=== PATIENT | male | born 1945 | race Caucasian/White ===

== ENCOUNTER 2016-11-13 14:38 | Outpatient (CLI) | payer MEDICARE, OTHER | END 2016-11-13 14:39 | disposition home or self-care (01) | DX: Z85.46 Personal history of malignant neoplasm of prostate (principal) ==

== ENCOUNTER 2017-04-12 15:30 | Emergency (ER) | payer MEDICARE, OTHER ==
[2017-04-12] MEDS ORDERED: GLUCAGON 1 MG/ML VIAL IVP STA (15:38)
[2017-04-12] MEDS ORDERED: diazePAM INJ 5 MG/ML SYRINGE IVP STA (15:38)
--- NOTE | 2017-04-12 15:39 | ED Physician Documentation ---
PD HPI CHEST PAIN - Stated complaint Stated Complaint: OBJECT IN THROAT - History obtained from History obtained from: Patient - History of Present Illness Timing - onset: Other (71-year-old gentleman with known Schatzki's ring, has been dilated a few times in the past by Dr. Hernandez in [place]. It has been a couple of years. Today after eating a salad feels impacted food bolus low in the sternum and is unable to manage his secretions but his voice is normal.) Review of Systems Constitutional: reports: Reviewed and negative Cardiac: denies: Palpitations, Pedal edema, Calf pain Respiratory: denies: Dyspnea, Cough, Hemoptysis, Wheezing PD PAST MEDICAL HISTORY - Past Medical History Cardiovascular: None Respiratory: None Endocrine/Autoimmune: None GI: Colon polyps, Other : Other HEENT: None Psych: None Musculoskeletal: None Derm: None, Rosacea - Past Surgical History Past Surgical History: Yes General: Colonoscopy, EGD - Allergies Allergies/Adverse Reactions: Allergies Allergy/AdvReac Type Severity Reaction Status Date / Time Sulfa (Sulfonamide Allergy Unknown Verified 12/08/14 15:44 Antibiotics) - Social History Does the pt smoke?: No Smoking Status: Never smoker PD ED PE NORMAL - Vitals Vital signs reviewed: Yes - General General: Alert and oriented X 3, No acute distress - HEENT HEENT: Pharynx benign - Cardiac Cardiac: RRR, No murmur - Respiratory Respiratory: No respiratory distress, Clear bilaterally - Abdomen Abdomen: Non tender - Neuro Neuro: Alert and oriented X 3, Normal speech - Psych Psych: Normal mood, Normal affect Results - Vitals Vitals: Vital Signs - 24 hr 04/12/17 15:31 Temperature 36.6 C Heart Rate 67 Respiratory 17 Rate Blood Pressure 171/100 H O2 Saturation 96 Oxygen O2 Source Room air PD MEDICAL DECISION MAKING - ED course ED course: He presents with recurrent esophageal food impaction from Schatzki's ring. Medications as given in the past were ordered, however prior to the administration of these he cleared the food bolus on his own and was tolerating liquids without issue. Advise follow-up with GI for consideration for repeat esophageal dilatation. Departure - Departure Disposition: 01 Home, Self Care Clinical Impression: Esophageal foreign body Qualifiers: Encounter type: initial encounter Qualified Code(s): T18.108A - Unspecified foreign body in esophagus causing other injury, initial encounter Condition: Good Record reviewed to determine appropriate education?: Yes Instructions: ED Foreign Body Esophageal Rslv Comments: Follow-up with your manager security and safety for consideration for repeat dilatation of your Schatzki's ring. Your blood pressure was elevated today on check into the emergency department. This does not mean that you have hypertension, it is a common phenomenon to come to the emergency department and have elevated blood pressure. I recommend that she see her primary care physician within the week to have it rechecked when you are feeling better.
[2017-04-12 15:49] VITALS: BP 171/100
== END 2017-04-12 16:06 | disposition home or self-care (01) ==
LOC: ED 15:30
DX: T18.128A Food in esophagus causing other injury, initial encounter (principal); K22.2 Esophageal obstruction; R03.0 Elevated blood-pressure reading, without diagnosis of hypertension
CPT/HCPCS: 99282; 99283

== ENCOUNTER 2017-07-08 21:42 | Emergency (ER) | payer MEDICARE, OTHER ==
[2017-07-08] MEDS ORDERED: diazePAM INJ 5 MG/ML SYRINGE IVP STA ×2 (22:27→23:12)
[2017-07-08] MEDS ORDERED: diazePAM INJ 5 MG/ML SYRINGE ONE ×2 (22:33→23:24)
[2017-07-08] MEDS ORDERED: GLUCAGON 1 MG/ML VIAL IVP STA (23:12)
[2017-07-08] MEDS ORDERED: GLUCAGON 1 MG/ML VIAL ONE (23:24)
[2017-07-08] MEDS ORDERED: WATER FOR INJECTION,STERILE 10 ML ONE (23:26)
[2017-07-09 00:26] VITALS: BP 183/107
--- NOTE | 2017-07-09 00:44 | ED Physician Documentation ---
PD HPI HEENT FB - Chief complaint Chief Complaint: Heent - History obtained from History obtained from: Patient, Family - History of Present Illness Timing - onset: Today Associated symptoms: Unable to swallow Similar symptoms before: Work up / diagnostics, Treatment Recently seen: Not recently seen - Additional information Additional information: Patient is a 71 year old male with a history of esophageal strictures and mulitple fb who is presenting to the emergency department for retained esophageal fb. patient states that he ate some salmon tonight and it feels like it is stuck. Patient is unable to swallow his secretions. Review of Systems Constitutional: denies: Fever, Chills Eyes: denies: Decreased vision Ears: denies: Ear pain, Drainage/discharge Nose: reports: Foreign Body Throat: reports: Sore throat Cardiac: denies: Chest pain / pressure, Palpitations Respiratory: denies: Cough GI: denies: Nausea, Vomiting : reports: Reviewed and negative Skin: reports: Reviewed and negative Musculoskeletal: denies: Neck pain Neurologic: reports: Reviewed and negative Psychiatric: reports: Reviewed and negative PD PAST MEDICAL HISTORY - Past Medical History Past Medical History: Yes Cardiovascular: None Respiratory: None Endocrine/Autoimmune: None GI: Colon polyps, Other : Other HEENT: None Psych: None Musculoskeletal: None Derm: None, Rosacea - Past Surgical History Past Surgical History: Yes General: Colonoscopy, EGD - Present Medications Home Medications: Ambulatory Orders Medication Instructions Recorded Confirmed diazePAM [Valium] 5 - 10 mg PO TID PRN #15 tablet 07/09/17 - Allergies Allergies/Adverse Reactions: Allergies Allergy/AdvReac Type Severity Reaction Status Date / Time Sulfa (Sulfonamide Allergy Unknown Verified 07/08/17 21:52 Antibiotics) - Social History Does the pt smoke?: No Smoking Status: Never smoker Does the pt drink ETOH?: Yes Does the pt have substance abuse?: No - Immunizations Immunizations are current?: No - POLST Patient has POLST: No PD ED PE NORMAL - Vitals Vital signs reviewed: Yes - General General: Alert and oriented X 3, Well developed/nourished - HEENT HEENT: Atraumatic, PERRL - Neck Neck: Supple, no meningeal sign - Cardiac Cardiac: RRR, No murmur - Respiratory Respiratory: No respiratory distress, Clear bilaterally - Abdomen Abdomen: Soft, Non tender, Non distended - Derm Derm: Normal color, Warm and dry - Extremities Extremities: No deformity - Neuro Neuro: Alert and oriented X 3, No motor deficit, No sensory deficit, Normal speech - Psych Psych: Normal mood, Normal affect PD ED PE EXPANDED - General General: Alert, Other (mild distress) - HEENT HEENT: Other (pooled secretions that patient has to spit out. ) Results - Vitals Vitals: Vital Signs - 24 hr 07/08/17 07/08/17 07/09/17 21:52 22:42 00:25 Temperature 36.7 C Heart Rate 68 77 70 Respiratory 18 16 20 Rate Blood Pressure 178/89 H 173/102 H 183/107 H O2 Saturation 98 96 97 Oxygen O2 Source Room air PD MEDICAL DECISION MAKING - ED course Complexity details: reviewed old records, reviewed results, re-evaluated patient , considered differential, d/w patient, d/w family, d/w leadership development consultant ED course: Patient was seen and examined at bedside. IV access was gained. Patient stated that this has happened multiple times. Patient stated that valium worked better for him. Patient was treated wiht 5 mg. Patient was observed for a while and had little relief. A second bolus of 5mg of valium along with glucagon and carbonated beverage was tried. Patient was again observed with no relief. Patient was still pooling secretions. Case was discussed with [facility], both their GI, Iain Moran, and ER, Dr. Finney who accepted transfer. while preparations were being made for transfer patient passed his food bolus. Patient was stable for discharge with outpatient follow up. Departure - Departure Disposition: 01 Home, Self Care Clinical Impression: Esophageal foreign body Condition: Good Instructions: ED Foreign Body Esophageal Rslv Follow-Up: Mateo Escobar MD [Primary Care Provider] - As Needed Prescriptions: diazePAM [Valium] 5 - 10 mg PO TID PRN #15 tablet PRN Reason: Spasms Comments: Your symptoms today are due to a food bolus. You should try to eat slower and smaller bites. You should follow up with your GI doctor and let him know that your symptoms returned. You may return to the emergency department at any time for new, worsening or uncontrollable symptoms. Discharge Date/Time: 07/09/17 01:10
== END 2017-07-09 01:10 | disposition home or self-care (01) ==
LOC: ED 21:42
DX: T18.128A Food in esophagus causing other injury, initial encounter (principal); X58.XXXA Exposure to other specified factors, initial encounter
CPT/HCPCS: 96374; 96375; 96376; 99283

== ENCOUNTER 2017-10-02 07:30 | Outpatient (CLI) | payer MEDICARE, OTHER | END 2017-10-02 07:31 | disposition home or self-care (01) | LOC: LAB.R 07:30 | PROVIDERS: ATTEND Internal Medicine | DX: R19.7 Diarrhea, unspecified (principal) | CPT/HCPCS: 81599; 83630; 87045; 87046; 87177; 87209; 87329; 87493 ==

== ENCOUNTER 2017-11-06 08:08 | Outpatient (CLI) | payer MEDICARE, OTHER ==
[2017-11-06 12:48] LABS: CHOL/HDL RATIO 2.8 (<5.0); CHOLESTEROL 179 mg/dL; HDL CHOLESTEROL 64 mg/dL; LDL CHOLESTEROL,CALCULATED 105 mg/dL; LDL/HDL RATIO 1.6 (<3.6); VLDL CHOLESTEROL 10 mg/dL
== END 2017-11-06 08:09 | disposition home or self-care (01) ==
LOC: LAB.F 08:08
PROVIDERS: ATTEND Internal Medicine
DX: Z85.46 Personal history of malignant neoplasm of prostate (principal); Z13.6 Encounter for screening for cardiovascular disorders
CPT/HCPCS: 36415; 80061; 83721; 84153

== ENCOUNTER 2017-12-03 08:15 | Outpatient (CLI) | payer MEDICARE, OTHER ==
[2017-12-03 11:55] LABS: CALCIUM 8.8 mg/dL (8.5-10.3); CREATININE 0.8 mg/dL (0.6-1.2)
== END 2017-12-03 08:16 | disposition home or self-care (01) ==
LOC: LAB.F 08:15
PROVIDERS: ATTEND Internal Medicine
DX: J30.9 Allergic rhinitis, unspecified (principal); K20.0 Eosinophilic esophagitis; K21.9 Gastro-esophageal reflux disease without esophagitis; N52.9 Male erectile dysfunction, unspecified; L71.9 Rosacea, unspecified; K22.2 Esophageal obstruction; Z86.010 Personal history of colon polyps; Z85.46 Personal history of malignant neoplasm of prostate; Z85.828 Personal history of other malignant neoplasm of skin
CPT/HCPCS: 36415; 80048

== ENCOUNTER 2018-01-02 14:34 | Outpatient (CLI) | payer MEDICARE, OTHER ==
[2018-01-02 14:47] LABS: ABNORMAL LYMPHS % (MANUAL) 0 %
[2018-01-02 18:36] LABS: BASOPHILS % (AUTO) 0.3 %; HGB - HEMOGLOBIN 15.2 g/dL (14.0-18.0); LYMPHOCYTES % (AUTO) 23.4 %; MEAN CORPUSCULAR HEMOGLOBIN 29.4 pg (27.0-31.0); MEAN CORPUSCULAR HGB CONC 32.7 g/dL (32.0-36.0); MEAN PLATELET VOLUME 10.5 fL (7.4-11.4); MONOCYTES % (AUTO) 9.9 %; NEUTROPHILS % (AUTO) 64.4 %; PLT - PLATELET COUNT 237 10^3/uL (130-450); RED BLOOD COUNT 5.16 10^6/uL (4.70-6.10); RED CELL DISTRIBUTION WIDTH 13.7 % (12.0-15.0); WHITE BLOOD COUNT 5.6 x10^3/uL (4.8-10.8)
[2018-01-02 18:55] LABS: INR 0.9 (0.8-1.2); PT - PROTHROMBIN TIME 10.7 secs (9.9-12.6)
[2018-01-02 21:56] LABS: BAND NEUTROPHILS % (MANUAL) 1 %; EOSINOPHILS # (MANUAL) 0.2 10^3/uL (0-0.7); LYMPHOCYTES # (MANUAL) 1.6 10^3/uL (1.5-3.5); LYMPHOCYTES % (MANUAL) 25 %; MONOCYTES # (MANUAL) 0.2 10^3/uL (0.0-1.0); NEUTROPHILS # (MANUAL) 3.6 10^3/uL (1.5-6.6); NEUTROPHILS % (MANUAL) 63 %
[2018-01-02 21:57] LABS: RBC MORPHOLOGY (MULTIPLE) NORMAL APPEARANCE (NORMAL)
[2018-01-02 21:58] LABS: DIFFERENTIAL COMMENT MANUAL DIFFERENTIAL; PLATELET ESTIMATE, MANUAL NORMAL (130-450,000) (NORMAL); PLATELET MORPHOLOGY 1+ GIANT PLATELETS (NORMAL)
== END 2018-01-02 14:35 | disposition home or self-care (01) ==
LOC: LAB.F 14:34
DX: H11.32 Conjunctival hemorrhage, left eye (principal)
CPT/HCPCS: 36415; 85025; 85610; 85730; 86140

== ENCOUNTER 2018-05-01 22:44 | Emergency (ER) | payer MEDICARE, OTHER ==
[2018-05-01] MEDS ORDERED: GLUCAGON 1 MG/ML VIAL IVP STA ×2 (23:11→23:54)
--- NOTE | 2018-05-01 23:13 | ED Physician Documentation ---
History of Present Illness - Stated complaint Stated Complaint: TROUBLE SWALLOWING - Chief complaint Chief Complaint: General - History obtained from History obtained from: Patient - History of Present Illness Timing: Today Pain level max: 4 Pain level now: 4 Improved by: nothing Worsened by: trying to swallow - Additonal information Additional information: ate fish earlier today and it became impacted. has esophageal dilations once per year with Dr Hernandez at [facility] Review of Systems Constitutional: denies: Fever, Chills Respiratory: denies: Cough GI: denies: Diarrhea, Hematemesis, Bloody / black stool Skin: denies: Rash Musculoskeletal: denies: Neck pain, Back pain PD PAST MEDICAL HISTORY - Past Medical History Cardiovascular: None Respiratory: None Endocrine/Autoimmune: None GI: Colon polyps, Other : Other HEENT: None Psych: None Musculoskeletal: None Derm: None, Rosacea - Past Surgical History Past Surgical History: Yes General: Colonoscopy, EGD - Present Medications Home Medications: Ambulatory Orders Medication Instructions Recorded Confirmed diazePAM [Valium] 5 - 10 mg PO TID PRN #15 tablet 07/09/17 - Allergies Allergies/Adverse Reactions: Allergies Allergy/AdvReac Type Severity Reaction Status Date / Time Sulfa (Sulfonamide Allergy Unknown Verified 07/08/17 21:52 Antibiotics) - Social History Does the pt smoke?: No Smoking Status: Never smoker Does the pt drink ETOH?: Yes Does the pt have substance abuse?: No - Immunizations Immunizations are current?: No - POLST Patient has POLST: No PD ED PE NORMAL - Vitals Vital signs reviewed: Yes - General General: Alert and oriented X 3 - HEENT HEENT: Moist mucous membranes - Neck Neck: Supple, no meningeal sign - Cardiac Cardiac: RRR - Respiratory Respiratory: No respiratory distress, Clear bilaterally - Derm Derm: Warm and dry - Neuro Neuro: Alert and oriented X 3 - Psych Psych: Normal mood, Normal affect Results - Vitals Vitals: Vital Signs - 24 hr 05/01/18 05/01/18 05/02/18 22:52 22:59 00:36 Temperature 36.3 C L Heart Rate 67 67 74 Respiratory 18 18 18 Rate Blood Pressure 162/102 H 127/80 O2 Saturation 100 100 96 Oxygen O2 Source Room air PD MEDICAL DECISION MAKING - ED course Complexity details: reviewed results, re-evaluated patient, considered differential, d/w patient ED course: Patient is a 72-year-old male who presents to the emergency department with a recurrent esophageal food bolus impaction. Was given EZ gas and Coke along with glucagon. After a period of time in the emergency department, the impaction resolved and he is tolerating p.o. without difficulty. No chest pain , back pain, neck pain. No abdominal pain. We will have him follow-up with GI for further care. Patient counseled regarding signs and symptoms for which I believe and urgent re-evaluation would be necessary. Patient with good understanding of and agreement to plan and is comfortable going home at this time This document was made in part using voice recognition software. While efforts are made to proofread this document, sound alike and grammatical errors may occur. - Sepsis Event Vital Signs: Vital Signs - 24 hr 05/01/18 05/01/18 05/02/18 22:52 22:59 00:36 Temperature 36.3 C L Heart Rate 67 67 74 Respiratory 18 18 18 Rate Blood Pressure 162/102 H 127/80 O2 Saturation 100 100 96 Oxygen O2 Source Room air Departure - Departure Disposition: 01 Home, Self Care Clinical Impression: Esophageal foreign body Qualifiers: Encounter type: initial encounter Qualified Code(s): T18.108A - Unspecified foreign body in esophagus causing other injury, initial encounter Condition: Good Instructions: ED Foreign Body Esophageal Rslv Follow-Up: Mateo Escobar MD [Primary Care Provider] - Within 1 week Behzad Hernandez MD [Provider Admit Priv/Credential] - Comments: Return if you worsen. Follow up with GI for further evaluation. Discharge Date/Time: 05/02/18 00:25
[2018-05-01] MEDS ORDERED: LORazepam 2 MG/ML VIAL IVP STA (23:54)
[2018-05-02 00:37] VITALS: BP 127/80
== END 2018-05-02 00:25 | disposition home or self-care (01) ==
LOC: ED 22:44
DX: T18.128A Food in esophagus causing other injury, initial encounter (principal); K22.8 Other specified diseases of esophagus
CPT/HCPCS: 96374; 99283

== ENCOUNTER 2018-11-13 13:31 | Outpatient (CLI) | payer MEDICARE, OTHER ==
[2018-11-13 17:50] LABS: CALCIUM 9.3 mg/dL (8.5-10.3)
[2018-11-13 18:13] LABS: CREATININE 0.7 mg/dL (0.6-1.2)
== END 2018-11-13 13:32 | disposition home or self-care (01) ==
LOC: LAB.F 13:31
PROVIDERS: ATTEND Internal Medicine
DX: K20.0 Eosinophilic esophagitis (principal); N52.9 Male erectile dysfunction, unspecified; K21.9 Gastro-esophageal reflux disease without esophagitis; I10 Essential (primary) hypertension; Z86.010 Personal history of colon polyps; Z85.46 Personal history of malignant neoplasm of prostate; Z85.828 Personal history of other malignant neoplasm of skin; L71.9 Rosacea, unspecified; K22.2 Esophageal obstruction; H11.30 Conjunctival hemorrhage, unspecified eye
CPT/HCPCS: 36415; 80048

== ENCOUNTER 2019-03-29 05:16 | Emergency (ER) | payer MEDICARE, OTHER ==
[2019-03-29 05:28] VITALS: BP 159/81
--- NOTE | 2019-03-29 06:15 | XRAY Report ---
Reason: injury to RLE, swollen R ankle Procedure Date: 03/29/2019 Accession Number: [id number] / [id number] Procedure: XR - Ankle 3 View RT CPT Code: FULL RESULT: EXAM: RIGHT ANKLE RADIOGRAPHY EXAM DATE: 03/29/2019 05:48 AM. CLINICAL HISTORY: Injury to RLE, swollen R ankle. COMPARISON: None. TECHNIQUE: 3 views. FINDINGS: Bones: Normal. No fractures or bone lesions. Joints: Normal. No effusion. No subluxations. The ankle mortise is normally aligned. Soft Tissues: Soft tissue swelling. No radiopaque foreign body in the soft tissues. IMPRESSION: Soft tissue swelling, but no evidence of acute fracture. RADIA
--- NOTE | 2019-03-29 06:16 | XRAY Report ---
Reason: injury to R LE, swelling Procedure Date: 03/29/2019 Accession Number: [id number] / [id number] Procedure: XR - Tib/Fib RT CPT Code: FULL RESULT: EXAM: RIGHT TIBIA/FIBULA RADIOGRAPHY EXAM DATE: 03/29/2019 05:48 AM. CLINICAL HISTORY: Injury to R LE, swelling. COMPARISON: None. TECHNIQUE: 2 views. FINDINGS: Bones: Normal. No fracture or bone lesion. Joints: Mild osteoarthritis of the right knee. Soft Tissues: Distal soft tissue swelling. IMPRESSION: No evidence of acute fracture. RADIA
--- NOTE | 2019-03-29 06:22 | ED Physician Documentation ---
PD HPI LOWER EXT INJURY - Stated complaint Stated Complaint: R ANKLE PX - Chief complaint Chief Complaint: Trauma Ext - History obtained from History obtained from: Patient - History of Present Illness PD HPI LOW EXT INJURY LOCATION: Right, Lower leg Type of injury: Blunt / blow Where injury occurred: Home Timing - onset: How many days ago (7) Timing - duration: Weeks (1) Timing - details: Abrupt onset, Still present Improved by: Rest, Immobilization Worsened by: Moving, Palpating Associated symptoms: Swelling. No: Weakness, Numbness Contributing factors: No: Anticoagulated Similar symptoms before: Has not had sx before Recently seen: Not recently seen - Additional information Additional information: 73-year old male dropped a wheelbarrow on his right tristan 7 days ago. He had a bruise to the lower calf with some abrasion and swelling. The swelling and pain associated with that have improved and the patient's foot is now swollen. He states that despite elevating his leg at night he awakens in the morning with persistence of swelling in his foot. He has been able to get up walk and do his usual things without much difficulty does get sore toward the end of the day. He states that when he gets up in the morning and initially bears weight there is sharp stinging pains that were present again this morning. He feels his pains and swelling are getting worse and he is come to the emergency department for evaluation. Review of Systems Constitutional: denies: Fever Eyes: denies: Decreased vision Ears: denies: Ear pain Nose: denies: Congestion Throat: denies: Sore throat Respiratory: denies: Cough GI: denies: Vomiting : denies: Dysuria Skin: denies: Rash Musculoskeletal: reports: Extremity pain, Extremity swelling, Pain with weight bearing. denies: Neck pain Neurologic: denies: Generalized weakness, Focal weakness, Numbness PD PAST MEDICAL HISTORY - Past Medical History Past Medical History: Yes Cardiovascular: Hypertension Respiratory: None Endocrine/Autoimmune: None GI: Colon polyps, Other : Other HEENT: None Psych: None Musculoskeletal: None Derm: None, Rosacea Other Past Medical History: Prostate CA - Past Surgical History Past Surgical History: Yes General: Colonoscopy, EGD - Present Medications Home Medications: Ambulatory Orders Medication Instructions Recorded Confirmed No Known Home Medications 03/29/19 03/29/19 - Allergies Allergies/Adverse Reactions: Allergies Allergy/AdvReac Type Severity Reaction Status Date / Time Sulfa (Sulfonamide Allergy Unknown Verified 03/29/19 05:28 Antibiotics) - Social History Does the pt smoke?: No Smoking Status: Never smoker Does the pt drink ETOH?: Yes Does the pt have substance abuse?: No - Immunizations Immunizations are current?: No - POLST Patient has POLST: No PD ED PE NORMAL - Vitals Vital signs reviewed: Yes (hypertensive ) - General General: Alert and oriented X 3, No acute distress, Well developed/nourished - HEENT HEENT: Atraumatic, PERRL, EOMI - Respiratory Respiratory: No respiratory distress - Derm Derm: Normal color, Warm and dry, No rash - Extremities Extremities: No deformity, Other (There is a healing abrasion to the right anterior calf with surrounding swelling and there is swelling tracking down to the foot. The foot and ankle mindy swollen in general and there is dark eccymosis along the lateral aspect of the foot and over the dorsum of the 2,3&4 toes. There is no tenderness to the foot ankle or posterior calf. Homans is negative. ) - Neuro Neuro: Alert and oriented X 3, shelf drier operator 2-12 intact, No motor deficit, No sensory deficit, Normal speech Eye Opening: Spontaneous Motor: Obeys Commands Verbal: Oriented GCS Score: 15 - Psych Psych: Normal mood, Normal affect Results - Vitals Vitals: Vital Signs - 24 hr 03/29/19 05:20 Temperature 36.1 C L Heart Rate 55 L Respiratory 18 Rate Blood Pressure 159/81 H O2 Saturation 98 Oxygen O2 Source Room air - Rads (name of study) right ankle Radiology: Prelim report reviewed (Impression: Soft tissue swelling, but no evidence of acute fracture.), EMP read indepedently, See rad report right tib fib Radiology: Prelim report reviewed (Impression: No evidence of acute fracture.), EMP read indepedently, See rad report PD MEDICAL DECISION MAKING - ED course Complexity details: reviewed results, re-evaluated patient, considered differential, d/w patient ED course: 73-year-old male with a bruise to his right anterior calf appears to have blood tracking down into the foot and has some swelling associated with this. He is 1 week out from his injury and he is concerned that the swelling does not reduce when he elevates his foot. He has no evidence of fracture on x-ray examination. I have been able to reassure the patient that the swelling is related to blood and not edema and that the resolution of this would be of a different nature than simply raising the foot. The blood will need to be reabsorbed and after I have pointed out to him the discoloration of the dark band along the lateral aspect of the foot and over the toes he is able to grasp the concept. Departure - Departure Disposition: 01 Home, Self Care Clinical Impression: Contusion of right calf Qualifiers: Encounter type: initial encounter Qualified Code(s): S80.11XA - Contusion of right lower leg, initial encounter Condition: Stable Instructions: ED Contusion Lower Ext, ED Hematoma Follow-Up: Mateo Escobar MD [Primary Care Provider] - Comments: Today it appears you have blood tract underneath the skin that is caused swelling in your foot and ankle. The expectation is that you will have resolution of this over the next week. Reduce your level of activity for 3-4 days.
== END 2019-03-29 06:53 | disposition home or self-care (01) ==
LOC: ED 05:16
DX: S80.11XA Contusion of right lower leg, initial encounter (principal); S80.811A Abrasion, right lower leg, initial encounter; W20.8XXA Other cause of strike by thrown, projected or falling object, initial encounter; Y92.009 Unspecified place in unspecified non-institutional (private) residence as the place of occurrence of the external cause; I10 Essential (primary) hypertension
CPT/HCPCS: 99282; 99283

== ENCOUNTER 2019-10-17 06:21 | Emergency (ER) | payer MEDICARE, OTHER ==
[2019-10-17 06:29] VITALS: BP 144/81
--- NOTE | 2019-10-17 07:35 | ED Physician Documentation ---
PD HPI SKIN - Stated complaint Stated Complaint: BLISTERS/RASH - Chief complaint Chief Complaint: Wound - History obtained from History obtained from: Patient - History of Present Illness Timing - onset: How many days ago (3) Timing - duration: Days (3) Timing - details: Gradual onset, Still present Location: Scalp, Neck Quality / character: Painful, Raised, Vesicular, Crusted Associated symptoms: No: Fever, Myalgias, Joint pain, Facial swelling, Dyspnea, Abd pain, N/V/D, Urinary sx Similar symptoms before: Has not had sx before Recently seen: Not recently seen - Additional information Additional information: Previously well 73-year-old male with no other specific complaints is developed a rash on his neck with small blisters and redness about 3 days ago. He is having some discomfort with this but not tremendous pain. He does not know of any specific stress that he is under currently. He has had chickenpox as a child. Review of Systems Constitutional: denies: Fever Eyes: denies: Decreased vision Ears: denies: Ear pain Nose: denies: Rhinorrhea / runny nose, Congestion Throat: denies: Sore throat Respiratory: denies: Dyspnea GI: denies: Vomiting Skin: reports: Rash, Lesions PD PAST MEDICAL HISTORY - Past Medical History Past Medical History: Yes Cardiovascular: Hypertension Respiratory: None Endocrine/Autoimmune: None GI: Colon polyps, Other : Other HEENT: None Psych: None Musculoskeletal: None Derm: None, Rosacea - Past Surgical History Past Surgical History: Yes General: Colonoscopy, EGD - Present Medications Home Medications: Ambulatory Orders Medication Instructions Recorded Confirmed Valacyclovir HCl [Valacyclovir] 1,000 mg PO TID #21 tablet 10/17/19 lisinopriL [Lisinopril] 20 mg DAILY 10/17/19 10/17/19 - Allergies Allergies/Adverse Reactions: Allergies Allergy/AdvReac Type Severity Reaction Status Date / Time Sulfa (Sulfonamide Allergy Unknown Verified 03/29/19 05:28 Antibiotics) - Social History Does the pt smoke?: No Smoking Status: Never smoker Does the pt drink ETOH?: Yes Does the pt have substance abuse?: No - Immunizations Immunizations are current?: No - POLST Patient has POLST: No PD ED PE NORMAL - Vitals Vital signs reviewed: Yes - General General: Alert and oriented X 3, No acute distress, Well developed/nourished - HEENT HEENT: Atraumatic, PERRL, EOMI - Neck Neck: Supple, no meningeal sign, No bony TTP, Other (There are groupings of 2- 3mm round blisters with an elevated erythematous base in the distriubution of a posterior scalp nerve. ) - Respiratory Respiratory: No respiratory distress - Derm Derm: Normal color, Warm and dry, Other (rash to the left side of the neck consistent with zoster. ) - Extremities Extremities: No deformity, No edema - Neuro Neuro: Alert and oriented X 3, three dimensional map modeler 2-12 intact, No motor deficit, No sensory deficit, Normal speech Eye Opening: Spontaneous Motor: Obeys Commands Verbal: Oriented GCS Score: 15 - Psych Psych: Normal mood, Normal affect Results - Vitals Vitals: Vital Signs - 24 hr 10/17/19 06:23 Temperature 36.8 C Heart Rate 65 Respiratory 14 Rate Blood Pressure 144/81 H O2 Saturation 96 Oxygen O2 Source Room air PD MEDICAL DECISION MAKING - ED course Complexity details: reviewed old records, considered differential, d/w patient ED course: 73-year-old male with a rash on the left side of his neck and scalp consistent with herpes zoster. He has had symptoms approximately 3 days he is administered valacyclovir [address] him on a one-week course I discussed with the patient potential for postherpetic neuralgia. Departure - Departure Disposition: 01 Home, Self Care Clinical Impression: Shingles Qualifiers: Herpes zoster complications: without complications Qualified Code(s): B02.9 - Zoster without complications Condition: Stable Instructions: ED Shingles Follow-Up: Mateo Escobar MD [Primary Care Provider] - Prescriptions: Valacyclovir HCl [Valacyclovir] 1,000 mg PO TID #21 tablet
[2019-10-17] MEDS: valACYclovir 500 MG TABLET PO STA (07:44)
== END 2019-10-17 07:44 | disposition home or self-care (01) ==
LOC: ED 06:21
DX: B02.9 Zoster without complications (principal); I10 Essential (primary) hypertension; Z79.899 Other long term (current) drug therapy; Z86.19 Personal history of other infectious and parasitic diseases
CPT/HCPCS: 99282; 99284

== ENCOUNTER 2019-10-27 09:01 | Outpatient (CLI) | payer MEDICARE, OTHER ==
--- NOTE | 2019-10-27 14:51 | XRAY Report ---
Reason: COUGH Procedure Date: 10/27/2019 Accession Number: [id number] / [id number] Procedure: XR - Chest 2 View X-Ray CPT Code: 52515 Final Report FULL RESULT: EXAM: CHEST RADIOGRAPHY EXAM DATE: 10/27/2019 09:20 AM. CLINICAL HISTORY: COUGH. COMPARISON: CHEST 2 VIEW PA/LAT 07/21/2014 9:38 AM. TECHNIQUE: 2 views. FINDINGS: Lungs/Pleura: No focal opacities evident. No pleural effusion. No pneumothorax. Increased volumes. Mediastinum: Heart and mediastinal contours are unremarkable. Other: Old right rib fractures. DJD spine. IMPRESSION: Hyperinflated. No active cardiopulmonary disease RADIA
== END 2019-10-27 09:02 | disposition home or self-care (01) ==
LOC: DI 09:01
PROVIDERS: ATTEND Internal Medicine
DX: R05 Cough (principal)
CPT/HCPCS: 71046

== ENCOUNTER 2019-11-24 09:08 | Outpatient (CLI) | payer MEDICARE, OTHER ==
[2019-11-24 17:40] LABS: CALCIUM 9.1 mg/dL (8.5-10.3); CREATININE 0.7 mg/dL (0.6-1.2)
== END 2019-11-24 09:09 | disposition home or self-care (01) ==
LOC: LAB.S 09:08
PROVIDERS: ATTEND Internal Medicine
DX: I10 Essential (primary) hypertension (principal)
CPT/HCPCS: 36415; 80048

== ENCOUNTER 2020-12-06 08:27 | Outpatient (CLI) | payer MEDICARE, OTHER ==
[2020-12-06 15:30] LABS: BUN - BLOOD UREA NITROGEN 17 mg/dL (6-20); CALCIUM 9.3 mg/dL (8.5-10.3); CARBON DIOXIDE - CO2 29 mmol/L (21-32); CHLORIDE 97 mmol/L (101-111); CHOL/HDL RATIO 2.2 (<5.0); CHOLESTEROL 197 mg/dL; CREATININE 0.8 mg/dL (0.6-1.2); GFR - MDRD 94 (>89); GLUCOSE 93 mg/dL (70-100); HDL CHOLESTEROL 91 mg/dL; LDL CHOLESTEROL,CALCULATED 92 mg/dL; POTASSIUM 4.3 mmol/L (3.5-5.0); SODIUM 136 mmol/L (135-145); TRIGLYCERIDES 72 mg/dL; VLDL CHOLESTEROL 14 mg/dL
== END 2020-12-06 08:28 | disposition home or self-care (01) ==
LOC: LAB.S 08:27
PROVIDERS: ATTEND Internal Medicine
DX: L30.9 Dermatitis, unspecified (principal); I10 Essential (primary) hypertension; M25.511 Pain in right shoulder; B02.29 Other postherpetic nervous system involvement; B02.9 Zoster without complications; Z13.6 Encounter for screening for cardiovascular disorders
CPT/HCPCS: 36415; 80048; 80061; 83721

== ENCOUNTER 2022-01-09 10:31 | Outpatient (CLI) | payer MEDICARE, OTHER | END 2022-01-09 10:32 | disposition critical access hospital (66) | LOC: EMS 10:31 | DX: R42 Dizziness and giddiness (principal); R11.2 Nausea with vomiting, unspecified; R10.33 Periumbilical pain; R14.2 Eructation | CPT/HCPCS: A0425; A0427 ==

== ENCOUNTER 2022-01-13 15:09 | Outpatient (CLI) | payer MEDICARE, OTHER | END 2022-01-13 15:10 | disposition home or self-care (01) | LOC: LAB 15:09 | PROVIDERS: ATTEND Surgery | DX: A04.72 Enterocolitis due to Clostridium difficile, not specified as recurrent (principal) | CPT/HCPCS: 87493 ==

== ENCOUNTER 2023-09-02 16:38 | Day surgery (SDC) | payer MEDICARE, OTHER ==
[2023-09-02] MEDS ORDERED: GLUCAGON 1 MG/ML VIAL IVP STA ×2 (16:54→17:02)
[2023-09-02] MEDS ORDERED: ONDANSETRON 4 MG/2 ML VIAL IVP STA (16:55)
--- NOTE | 2023-09-02 17:02 | ED Physician Documentation ---
History of Present Illness - Stated complaint Stated Complaint: THROAT BLOCKAGE - Chief complaint Chief Complaint: Abd Pain - History obtained from History obtained from: Patient - Additonal information Additional information: Patient is a 77-year-old male with a history of esophageal strictures presenting for evaluation of difficulty swallowing since 2 PM. Patient states he was having lunch which consisted of bread, partially cooked broccoli and has felt something lodged in the middle of his esophagus. He did try drinking soda as he has had this happen before and did vomit up a little bit of the food but still is unable to pass any secretions or tolerate any p.o. He has had numerous prior ED visits for this and states at times he has had relief with glucagon and Valium. At times he has required endoscopy. Review of Systems Cardiac: denies: Chest pain / pressure Respiratory: denies: Dyspnea GI: denies: Abdominal Pain PD PAST MEDICAL HISTORY - Past Medical History Past Medical History: Yes Cardiovascular: Hypertension Respiratory: None Endocrine/Autoimmune: None GI: Colon polyps, Other : Other HEENT: None Psych: None Musculoskeletal: None Derm: None, Rosacea Other Past Medical History: esopahgeal structure - Past Surgical History Past Surgical History: Yes General: Colonoscopy, EGD HEENT: Tonsil/Adenoidectomy - Present Medications Home Medications: Ambulatory Orders Medication Instructions Recorded Confirmed No Known Home Medications 09/02/23 09/02/23 - Allergies Allergies/Adverse Reactions: Allergies Allergy/AdvReac Type Severity Reaction Status Date / Time Sulfa (Sulfonamide Allergy Unknown Verified 09/02/23 16:47 Antibiotics) - Social History Does the pt smoke?: No Smoking Status: Never smoker Does the pt drink ETOH?: Yes Does the pt have substance abuse?: No - Immunizations Immunizations are current?: No - POLST Patient has POLST: No PD ED PE NORMAL - General General: Alert and oriented X 3, No acute distress, Well developed/nourished, Other (Spitting all secretions into emesis bag) - HEENT HEENT: Atraumatic - Neck Neck: Supple, no meningeal sign - Cardiac Cardiac: RRR, No murmur - Respiratory Respiratory: No respiratory distress, Clear bilaterally - Abdomen Abdomen: Soft, Non tender - Derm Derm: Warm and dry - Neuro Neuro: Normal speech Results - Vitals Vitals: Vital Signs - 24 hr 11/09/02/23 09/02/23 16:40 17:31 18:22 Temperature 36.2 C L Heart Rate 83 87 89 Heart Rate [ Brachial] Respiratory 14 11 L 18 Rate Blood Pressure 171/94 H 164/114 H 135/95 H Blood Pressure [Right Brachial artery] O2 Saturation 99 98 99 09/02/23 09/02/23 09/02/23 19:31 20:11 20:15 Temperature 36.2 C L 36.7 C 36.7 C Heart Rate 89 87 87 Heart Rate [ Brachial] Respiratory 18 18 18 Rate Blood Pressure 135/95 H 137/79 H 137/79 H Blood Pressure [Right Brachial artery] O2 Saturation 99 97 97 09/02/23 09/02/23 09/02/23 20:20 20:25 20:45 Temperature 36.3 C L 36.4 C L 36.4 C L Heart Rate 85 77 Heart Rate [ 77 Brachial] Respiratory 12 14 24 Rate Blood Pressure 143/86 H 138/78 H Blood Pressure 144/76 H [Right Brachial artery] O2 Saturation 97 98 96 09/02/23 09/02/23 09/02/23 21:00 21:15 21:30 Temperature 36.4 C L 36.3 C L 36.5 C Heart Rate Heart Rate [ 79 74 73 Brachial] Respiratory 20 22 20 Rate Blood Pressure Blood Pressure 145/82 H 143/73 H 124/72 [Right Brachial artery] O2 Saturation 96 100 97 09/02/23 22:00 Temperature 36.6 C Heart Rate Heart Rate [ 73 Brachial] Respiratory 22 Rate Blood Pressure Blood Pressure 145/75 H [Right Brachial artery] O2 Saturation 96 Oxygen O2 Source Room air PD Medical Decision Making - ED course Complexity details: re-evaluated patient ED course: Patient with symptoms of esophageal food impaction. Has had this multiple times in the past. Was given glucagon and Valium. Reported some feeling of improve ment and would like to trial p.o. Patient is signed out to Dr. Thomas at shift change. If patient does not pass p.o. challenge will need to consult general surgery for upper endoscopy. 1735 - No Improvement after glucagon. Patient states he has had some improvement in the past with Valium so we will give that a try. 175 - Still no change. Nurse is Getting the Valium that was ordered. 180 - Patient feels that something may have passed. We will try a p.o. challenge. Patient will be signed out to Dr. Thomas at shift change. Departure - Departure Disposition: ED Transfer to [facility] Clinical Impression: Food impaction of esophagus Condition: Stable Discharge Date/Time: 09/02/23 19:36
[2023-09-02] MEDS ORDERED: diazePAM INJ 5 MG/ML SYRINGE IVP STA (17:34)
[2023-09-02] MEDS ORDERED: SODIUM CHLORIDE 0.9% 1,000 ML IV STA (17:34)
--- NOTE | 2023-09-02 18:42 | ED Physician Documentation ---
ED Addendum - Addendum Addendum: 09/02/23 18:[address] Valerio at 6 PM shift change. He had already been tried on a few meds which were unsuccessful. Still unable to tolerate his secretions and I spoke with Dr. Cano at this time and she will plan to take him to the OR. Disposition: Same-day surgery Condition: Stable
[2023-09-02] MEDS ORDERED: MORPHINE 2 MG/ML CARPUJECT IVP PRN ×2 (19:21→19:56)
[2023-09-02] MEDS ORDERED: ONDANSETRON 4 MG/2 ML VIAL IVP PRN ×3 (19:21→20:02)
--- NOTE | 2023-09-02 19:25 | SURGERY HX AND PHYSICAL(T) ---
Surgical History & Physical - Chief Complaint/HPI Chief Complaint: I have something stuck in my throat History of Present Illness: Patient states he ate some leftover turkey and a "hard crusty roll" at approximately 130 today. Since that time, he has felt pressure in his substernal chest, and been unable to tolerate anything p.o. including his own secretions. The patient has had a similar problem in the past at least 6 times a year. He is usually able to get what ever is stuck to pass by waiting and trying to drink some water or coming to the ER and trying Valium and glucagon. All of the above methods have been unsuccessful today. He has required one previous EGD with removal of foreign body approximately 18 months ago, and multiple previous esophageal dilations. He is followed by tin flopper at [facility], and last saw them for an EGD and dilation between 6 and 12 months ago. He denies any history of esophageal perforation, eosinophilic esophagitis, or esophageal ulceration. He has not had any previous esophageal surgeries and has had previous esophageal endoscopy as mentioned above.He does not smoke, and has no history of tobacco use. He occasionally drinks alcohol. He does not take any acid reducing medications on a regular basis. - PMH/PSH/Social Hx Does the pt have a hx of MRSA?: No Eyes, Ears, Nose, Throat: None Cardiovascular: Hypertension Respiratory: None Skin: None, Rosacea Endocrine/Autoimmune: None Gastrointestinal: Colon polyps, Other Urinary: Other Musculoskeletal: None Psychiatric: None PMH Other: esopahgeal structure General: Colonoscopy, EGD Urologic: Prostatic surgery Eyes Ears Nose Throat (EENT): Tonsil/Adenoidectomy Smoking Status: Never smoker Does the pt drink ETOH?: Yes Frequency: Occasional Does the pt have substance abuse?: No - Family Hx Family Hx: Unremarkable - Home Meds and Allergies Home Medications: No Known Home Medications 09/02/23 Allergies/Adverse Reactions: Allergies Allergy/AdvReac Type Severity Reaction Status Date / Time Sulfa (Sulfonamide Allergy Unknown Verified 09/02/23 16:47 Antibiotics) - Review of Systems Constitutional: Other (A complete 10 point review of symptoms is otherwise negative except for that noted in HPI and PMH.) - Vital Signs Heart Rate: 89 Blood Pressure: 135/95 Temperature: 36.2 C Respiratory Rate: 18 O2 Saturation: 99 Weight (kg): 74.843 kg Height: 1.83 m - Physical Exam General Appearance: positive: Mild distress, Other (The patient is anxious and very apologetic.) Eyes Bilatera: positive: Normal inspection, PERRL, EOMI ENT: positive: No signs of dehydration, Other (Unable to tolerate his own secretions, with frequent spitting up and retching) Neck: positive: Trachea midline Respiratory: positive: Chest non-tender, No respiratory distress Cardiovascular: positive: Regular rate & rhythm Abdomen: positive: Non-tender, No distention. negative: Guarding, Rebound Back: positive: Nml inspection Extremities: positive: Non-tender, Full ROM Neurologic/Psychiatric: positive: Oriented x3, CN's nml (2-12) - Patient Review Patient Review: Problems were reviewed with the patient during this visit. Medications were reviewed with the patient during this visit. Allergies were reviewed this patient during this visit. Pertinent Tests Reviewed: All pertitent test for this patient were reviewed. - Assessment & Plan Assessment and Plan: 77-year-old gentleman with: 1. Impacted esophageal foreign body Patient ate hard bread at approximately 130 this afternoon. Attempts to get this to pass by drinking water, given glucagon and Valium have been unsuccessful. I discussed with the patient the risks, benefits, and alternatives of EGD with esophageal food bolus removal. We discussed that because this is impacted in his esophagus he will require general anesthesia with intubation. Risks include but are not limited to bleeding, and perforation. Sometimes the food will pass easily, and sometimes it requires significant manipulation and a prolonged operative time. Where this to be the case, the patient may need to stay overnight to recover. I anticipate he will go home either later tonight or tomorrow morning. The patient voiced understanding, his questions were answered, and he wished to proceed.We will proceed with emergent EGD with food bolus removal. Postoperatively, I recommend 2 days of full liquid diet, and then resumption of a soft diet avoiding any hard breads, hard meats, and anything to eat. I also recommend a 1 month trial of a PPI. I recommend follow-up with either myself or his tin flopper to assess for need for repeat dilation in 4 to 6 weeks. 2. Hypertension -The patient will continue on his home medication after his procedure today.
--- NOTE | 2023-09-02 19:38 | ANESTHESIA ---
Pre-Anesthesia VS, & Labs - Diagnosis food bolus in esophagus - Procedure EGD, removal of food bolus Vital Signs: Temp Pulse Resp BP Pulse Ox O2 Flow Rate 36.2 C L 89 18 135/95 H 99 09/02/23 19:31 09/02/23 19:31 09/02/23 19:31 09/02/23 19:31 09/02/23 19:31 Height: 6 ft Weight (kg): 74.843 kg Body Mass Index: 22.4 BMI Classification: Normal - NPO Other (1400) Home Medications and Allergies Home Medications: Ambulatory Orders No Known Home Medications 09/02/23 Active Medications Sodium Chloride (Normal Saline 0.9%) 1,000 mls @ 150 mls/hr IV .Q6H40M STA Stop: 09/03/23 00:13 Last Admin: 09/02/23 17:59 Dose: 150 mls/hr Sodium Chloride (Normal Saline 0.9%) 1,000 mls @ 125 mls/hr IV .Q8H KATERINE Morphine Sulfate (Morphine 2 Mg/Ml Carpuject) 4 mg IVP Q2HR PRN PRN Reason: PAIN >8 Ondansetron HCl (Ondansetron 4 Mg/2 Ml Vial) 4 mg IVP Q6HR PRN PRN Reason: Nausea / Vomiting No Known Home Medications 09/02/23 Allergies/Adverse Reactions: Allergies Allergy/AdvReac Type Severity Reaction Status Date / Time Sulfa (Sulfonamide Allergy Unknown Verified 09/02/23 16:47 Antibiotics) Anes History & Medical History - Anesthetic History Anesthesia Complications: reports: No previous complications - Medical History Cardiovascular: reports: Hypertension Pulmonary: reports: None Gastrointestinal: reports: Colon polyps, Other Urinary: reports: Other Musculoskeletal: reports: None Endocrine/Autoimmune: reports: None Skin: reports: None, Rosacea Smoking Status: Never smoker Other Past Medical History: esopahgeal structure - Surgical History General: reports: Colonoscopy, EGD Eyes Ears Nose Throat (EENT): reports: Tonsil/Adenoidectomy Urologic: reports: Prostatic surgery Exam General: Alert, Oriented x3, Moderate distress Dental: WNL Neck Mobility: Normal Mallampati classification: II Respiratory: Lungs clear Cardiovascular: Regular rate Plan Anesthesia Type: General Consent for Procedure(s) Verified and Reviewed: Yes Code Status: Attempt Resuscitation ASA classification: 2-Mild systemic disease Is this case an emergency?: Yes
[2023-09-02] MEDS ORDERED: ROCURONIUM 50 MG/5 ML VIAL ONE (19:41)
[2023-09-02] MEDS ORDERED: PROPOFOL 200 MG/20 ML VIAL IVP ONE (19:41)
[2023-09-02] MEDS ORDERED: ATROPINE ABBOJECT 1 MG/10 ML SYRINGE IVP PRN (19:56)
[2023-09-02] MEDS ORDERED: fentaNYL 100 MCG/2 ML VIAL IVP PRN (19:56)
[2023-09-02] MEDS ORDERED: ePHEDrine 50 MG/ML VIAL IVP PRN (19:56)
[2023-09-02] MEDS ORDERED: NALOXONE 0.4 MG/ML VIAL IVP PRN (19:56)
[2023-09-02] MEDS ORDERED: METOCLOPRAMIDE 10 MG/2 ML VIAL IVP PRN (19:56)
[2023-09-02] MEDS ORDERED: HYDROmorphone 0.5 MG/0.5 ML SYRINGE IVP PRN (19:56)
[2023-09-02] MEDS ORDERED: LACTATED RINGERS 1,000 ML IV SCH (20:00)
[2023-09-02] MEDS ORDERED: SODIUM CHLORIDE 0.9% 1,000 ML IV SCH (20:00)
[2023-09-02] MEDS ORDERED: SUGAMMADEX 200 MG/2 ML VIAL IVP ONE (20:07)
[2023-09-02] MEDS ORDERED: LACTATED RINGERS 200 ML IV ONE ×2 (20:11)
--- NOTE | 2023-09-02 20:42 | ANESTHESIA POST OP EVALUATION ---
Anesthesia Post Eval - Post Anesthesia Eval Vitals: Last Vital Signs Temp 36.4 C L 09/02/23 20:25 Pulse 77 09/02/23 20:25 Resp 14 09/02/23 20:25 BP 138/78 H 09/02/23 20:25 Pulse Ox 98 09/02/23 20:25 O2 Flow Rate CV Function Including HR & BP: Stable Pain Control: Satisfactory Nausea & Vomiting: Negative Mental Status: Baseline Respiratory Status: Airway Patent Hydration Status: Satisfactory Anesthesia Complications: None
[2023-09-02 22:07] VITALS: BP 145/75; O2SAT 96
== END 2023-09-02 22:24 | disposition home or self-care (01) ==
LOC: ED 16:38 → SDS 19:10 → MS2 20:44 → SDS 22:24
PROVIDERS: ATTEND Surgery
PROC: 0DC38ZZ Extirpation of Matter from Lower Esophagus, Via Natural or Artificial Opening Endoscopic (ICD-10-PCS; principal; 2023-09-02 19:30)
DX: T18.128A Food in esophagus causing other injury, initial encounter (principal); I10 Essential (primary) hypertension
CPT/HCPCS: 43247; 96374; 96375; 99284; 99285; J1610; J7120